=== PATIENT | female | born 1955 | race Caucasian/White ===

== ENCOUNTER 2018-01-22 12:43 | Day surgery (SDC) | payer BC ==
[2018-01-22] MEDS ORDERED: PROPOFOL 40 ML (15:51)
== END 2018-01-22 17:44 | disposition home or self-care (01) ==
LOC: GIL 12:43
DX: K92.1 Melena (principal); K21.0 Gastro-esophageal reflux disease with esophagitis; D12.5 Benign neoplasm of sigmoid colon; D12.2 Benign neoplasm of ascending colon; K63.89 Other specified diseases of intestine; K57.90 Diverticulosis of intestine, part unspecified, without perforation or abscess without bleeding
CPT/HCPCS: 43239; 88305; 88312; 88313